=== PATIENT | male | born 1945 | race Caucasian/White ===

== ENCOUNTER 2017-02-28 18:30 | Emergency (ER) | payer MEDICARE, OTHER ==
[2017-02-28 19:58] LABS: HEMOGLOBIN 15.7 gm/dl (14.0-17.5); RED BLOOD COUNT 4.93 M/UL (4.20-5.50); WHITE BLOOD COUNT 7.6 K/UL (4.5-11.0)
== END 2017-02-28 20:34 | disposition short-term general hospital (02) ==
LOC: ER1 18:30
PROVIDERS: Family Medicine
DX: S42.115A Nondisplaced fracture of body of scapula, left shoulder, initial encounter for closed fracture (principal); S32.401A Unspecified fracture of right acetabulum, initial encounter for closed fracture; J45.909 Unspecified asthma, uncomplicated; F17.210 Nicotine dependence, cigarettes, uncomplicated; V43.62XA Car passenger injured in collision with other type car in traffic accident, initial encounter
CPT/HCPCS: 70450; 71010; 80053; 82550; 82553; 82962; 83874; 84484; 85025; 93005; 99284

== ENCOUNTER → 2021-02-03 | Outpatient (CLI) | payer MEDICARE, OTHER | LOC: KOH-I 12:58 | DX: R41.840 Attention and concentration deficit (principal); G31.9 Degenerative disease of nervous system, unspecified | CPT/HCPCS: 70450 ==

== ENCOUNTER 2021-02-12 09:19 | Emergency (ER) | payer MEDICARE, OTHER ==
[2021-02-12 09:52] LABS: HEMOGLOBIN 16.6 gm/dl (14.0-17.5); RED BLOOD COUNT 4.59 M/UL (4.20-5.50); WHITE BLOOD COUNT 4.6 K/UL (4.5-11.0)
== END 2021-02-12 12:20 | disposition home or self-care (01) ==
LOC: ER1 09:19
PROVIDERS: Physician Assistant
DX: S61.216A Laceration without foreign body of right little finger without damage to nail, initial encounter (principal); S00.01XA Abrasion of scalp, initial encounter; S00.31XA Abrasion of nose, initial encounter; Z86.73 Personal history of transient ischemic attack (TIA), and cerebral infarction without residual deficits; X58.XXXA Exposure to other specified factors, initial encounter; Z23 Encounter for immunization
CPT/HCPCS: 12001; 70450; 71260; 73030; 73130; 80053; 83690; 85025; 90471; 90715; 99284; J7030; Q9967

== ENCOUNTER 2021-03-12 15:28 | Emergency (ER) | payer MEDICARE, OTHER | END 2021-03-12 18:00 | disposition home or self-care (01) | LOC: ER1 15:28 | DX: S09.90XA Unspecified injury of head, initial encounter (principal); W22.8XXA Striking against or struck by other objects, initial encounter | CPT/HCPCS: 70450; 99283 ==

== ENCOUNTER 2021-04-01 16:34 | Emergency (ER) | payer MEDICARE, OTHER ==
[2021-04-01 17:28] LABS: HEMOGLOBIN 14.6 gm/dl (14.0-17.5); RED BLOOD COUNT 4.03 M/UL (4.20-5.50); WHITE BLOOD COUNT 5.4 K/UL (4.5-11.0)
[2021-04-01 17:47] LABS: BUN/CREATININE RATIO 15 (0-10)
== END 2021-04-01 19:15 | disposition home or self-care (01) ==
LOC: ER1 16:34
PROVIDERS: Preventive Medicine Occupational Medicine
DX: E86.0 Dehydration (principal); R11.2 Nausea with vomiting, unspecified; I10 Essential (primary) hypertension; Z20.822 Contact with and (suspected) exposure to COVID-19
CPT/HCPCS: 0240U; 70450; 71045; 80053; 80307; 82140; 82550; 82553; 83690; 83874; 83880; 84484; 85025; 85652; 86140; 93005; 99284; G0480

== ENCOUNTER 2021-09-02 16:24 | Emergency (ER) | payer MEDICARE, OTHER ==
[2021-09-02 19:54] LABS: HEMOGLOBIN 16.6 gm/dl (14.0-17.5); RED BLOOD COUNT 4.6 M/UL (4.20-5.50); WHITE BLOOD COUNT 6.2 K/UL (4.5-11.0)
[2021-09-02 20:14] LABS: BUN/CREATININE RATIO 12 (0-10)
== END 2021-09-02 20:58 | disposition home or self-care (01) ==
LOC: ER1 16:24
PROVIDERS: Family Medicine
DX: R00.1 Bradycardia, unspecified (principal); R42 Dizziness and giddiness
CPT/HCPCS: 70450; 71046; 80053; 81001; 82550; 82553; 82728; 83874; 84484; 85025; 85610; 93005; 99284

== ENCOUNTER 2021-09-21 20:33 | Inpatient (IN) | payer MEDICARE, OTHER ==
[~2021-09-21] VITALS: Ht 165.1 cm; Wt 75.8 kg
[2021-09-21 21:31] LABS: HEMOGLOBIN 15.9 gm/dl (14.0-17.5); RED BLOOD COUNT 4.42 M/UL (4.20-5.50); WHITE BLOOD COUNT 8.3 K/UL (4.5-11.0)
[2021-09-21 21:56] LABS: BUN/CREATININE RATIO 12 (0-10)
[2021-09-22 04:42] LABS: HEMOGLOBIN 16.1 gm/dl (14.0-17.5); RED BLOOD COUNT 4.51 M/UL (4.20-5.50); WHITE BLOOD COUNT 6.8 K/UL (4.5-11.0)
[2021-09-22 09:43] LABS: BUN/CREATININE RATIO 13 (0-10)
[2021-09-22] MEDS ORDERED: LISINOPRIL20 MG PO (10:49)
[2021-09-22] MEDS ORDERED: METOPROLOL SUCC25 MG PO (10:49)
[2021-09-22] MEDS ORDERED: MECLIZINE HCL25 MG PO (10:49)
[2021-09-22] MEDS ORDERED: ASPIRIN-DIPYRIDAMOLE PO (10:51)
[2021-09-22] MEDS ORDERED: ISOSORBIDE MONO30 MG PO (10:52)
[2021-09-22] MEDS ORDERED: ATORVASTATIN CA40 MG PO (10:52)
[2021-09-22] MEDS ORDERED: PROTONIX20 MG PO (10:52)
[2021-09-22] MEDS ORDERED: LEVOTHYROXINE50 MCG PO (10:52)
[2021-09-22] MEDS ORDERED: VITAMIN B-12100 MCG PO (10:53)
[2021-09-22] MEDS ORDERED: VITAMIN D350 MCG PO (10:53)
[2021-09-23 07:02] LABS: RED BLOOD COUNT 4.43 M/UL (4.20-5.50)
[2021-09-23 07:22] LABS: WHITE BLOOD COUNT 4.4 K/UL (4.5-11.0)
[2021-09-24 06:52] LABS: HEMOGLOBIN 16.4 gm/dl (14.0-17.5); RED BLOOD COUNT 4.53 M/UL (4.20-5.50); WHITE BLOOD COUNT 4.9 K/UL (4.5-11.0)
[2021-09-25 06:51] LABS: HEMOGLOBIN 16.7 gm/dl (14.0-17.5); RED BLOOD COUNT 4.61 M/UL (4.20-5.50); WHITE BLOOD COUNT 5.7 K/UL (4.5-11.0)
[2021-09-25 07:11] LABS: BUN/CREATININE RATIO 20 (0-10)
[2021-09-26 09:32] LABS: HEMOGLOBIN 17.4 gm/dl (14.0-17.5); RED BLOOD COUNT 4.86 M/UL (4.20-5.50); WHITE BLOOD COUNT 6.1 K/UL (4.5-11.0)
[2021-09-26] MEDS ORDERED: ISOSORBIDE MONO60 MG PO (15:23)
[2021-09-26] MEDS ORDERED: ASPIRIN EC81 MG PO (15:23)
[2021-09-26] MEDS ORDERED: RANEXA500 MG PO (15:23)
== END 2021-09-26 17:42 | disposition home or self-care (01) | DRG 287 ==
LOC: ER1 20:33 → CDU 09-22 03:29 → MED SURG 4 09-22 15:55
PROVIDERS: Emergency Medicine; Physician Assistant; ADMIT Internal Medicine
PROC: 4A023N7 Measurement of Cardiac Sampling and Pressure, Left Heart, Percutaneous Approach (ICD-10-PCS; principal; 2021-09-26)
PROC: B2111ZZ Fluoroscopy of Multiple Coronary Arteries using Low Osmolar Contrast (ICD-10-PCS; 2021-09-26)
DX: I25.119 Atherosclerotic heart disease of native coronary artery with unspecified angina pectoris (principal); I10 Essential (primary) hypertension; E78.5 Hyperlipidemia, unspecified; E03.9 Hypothyroidism, unspecified; M81.0 Age-related osteoporosis without current pathological fracture; Z20.822 Contact with and (suspected) exposure to COVID-19; E83.119 Hemochromatosis, unspecified; Z95.1 Presence of aortocoronary bypass graft; Z82.49 Family history of ischemic heart disease and other diseases of the circulatory system; Z79.899 Other long term (current) drug therapy; Z90.89 Acquired absence of other organs; Z79.82 Long term (current) use of aspirin; I25.2 Old myocardial infarction
CPT/HCPCS: ECHO; 0240U; 36415; 71045; 78452; 80048; 80053; 80061; 82550; 82553; 83735; 83874; 83880; 84443; 84484; 85025; 85610; 85730; 93005; 93017; 93306; 96372; 99152; 99285; A9502; C1769; C1887; C1894; G0378; J1644; J1650; J2250; J2785; J3010; J7030; J7040; Q9965

== ENCOUNTER → 2021-12-16 | Outpatient (CLI) | payer MEDICARE, OTHER ==
[~2021-12-16] MED LIST: ASPIRIN EC81 MG PO; ASPIRIN-DIPYRIDAMOLE PO; ATORVASTATIN CA40 MG PO; ISOSORBIDE MONO30 MG PO; ISOSORBIDE MONO60 MG PO; LEVOTHYROXINE50 MCG PO; LISINOPRIL20 MG PO; MECLIZINE HCL25 MG PO; METOPROLOL SUCC25 MG PO; PROTONIX20 MG PO; RANEXA500 MG PO; VITAMIN B-12100 MCG PO; VITAMIN D350 MCG PO
== END ==
LOC: EXRD 14:40
DX: N18.32 Chronic kidney disease, stage 3b (principal); N28.1 Cyst of kidney, acquired
CPT/HCPCS: 76775